=== PATIENT | male | born 1970 | race Two or more races ===

== ENCOUNTER 2017-09-10 09:27 | Emergency (ER) | payer SELFPAY ==
[~2017-09-10] VITALS: Ht 177.8 cm; Wt 90.0 kg
[2017-09-10 10:35] VITALS: BP 120/68
== END 2017-09-10 10:38 | disposition home or self-care (01) ==
LOC: ER 09:31
DX: M62.838 Other muscle spasm (principal); V89.2XXA Person injured in unspecified motor-vehicle accident, traffic, initial encounter; Y93.89 Activity, other specified; Y92.89 Other specified places as the place of occurrence of the external cause; Y99.8 Other external cause status
CPT/HCPCS: 99283; Z7610